=== PATIENT | female | born 1945 | race Caucasian/White ===

== ENCOUNTER → 2016-06-13 | Outpatient (CLI) | payer OTHER ==
--- NOTE | 2016-06-13 15:47 | DX ---
PA and Lateral Chest - June 13, 2016 Indication: Cough and fever. Comparison: None Findings: The lungs have diffuse mild peribronchial thickening and linear opacities in bilateral lung zones. No confluent airspace consolidation or effusion. Heart size is normal. No pulmonary nodule or mass. Impression: Favor bibasilar atelectasis and mild airways disease rather than pneumonia.
== END ==
LOC: FIMAGING 10:34
PROVIDERS: ATTEND Internal Medicine Hematology & Oncology
DX: R05 Cough (principal); R50.9 Fever, unspecified; R91.8 Other nonspecific abnormal finding of lung field; E83.110 Hereditary hemochromatosis
CPT/HCPCS: 82784-90; 86334-90